=== PATIENT | male | born 1980 | race Caucasian/White ===

== ENCOUNTER 2024-08-11 21:11 | Emergency (ER) | payer OTHER ==
[~2024-08-11] VITALS: Ht 170.2 cm; Wt 98.4 kg
[2024-08-11 21:23] VITALS: BP 139/90; TEMP 98.1; O2SAT 98
== END 2024-08-11 22:21 | disposition left against medical advice (07) ==
LOC: ER 21:11
DX: R20.0 Anesthesia of skin (principal); Z53.21 Procedure and treatment not carried out due to patient leaving prior to being seen by health care provider